=== PATIENT | female | born 1975 | race Caucasian/White ===

== ENCOUNTER 2017-08-15 12:47 | Day surgery (SDC) | payer OTHER ==
[~2017-08-15] VITALS: Ht 160 cm; Wt 108.9 kg
[~2017-08-15 12:47] MED LIST: CIPRO500 MG PO; FLAGYL500MG PO; INTESTINEX1 CA1 PO; SINGULAIR10 MG; SYNTHROID100 MCG
[2017-08-16] MEDS ORDERED: KETO10TA2 PO (18:07)
[2017-08-16] MEDS ORDERED: NEURONTIN300 MG PO (18:08)
[2017-08-16] MEDS ORDERED: RECTICARE30 GM TOP (18:08)
== END 2017-08-16 18:00 | disposition home or self-care (01) ==
LOC: ER 12:47 → SURH 18:08 → CIR.AMB 20:00 → EDSTATUS 08-16 12:15 → CIR.AMB 08-16 18:00 → SURH 08-16 18:29
DX: K61.2 Anorectal abscess (principal); K62.89 Other specified diseases of anus and rectum

== ENCOUNTER 2017-10-11 06:44 | Day surgery (SDC) | payer OTHER ==
[~2017-10-11 06:44] MED LIST changes: +KETO10TA2 PO; +NEURONTIN300 MG PO; +PROAIR HFA8.5 GM IH; +PROVENTIL HFA6.7 GM IH; +RECTICARE30 GM TOP; +SYNTHROID100 MCG PO; +[UNRECOGNIZED DRUG - OTHER]; +[UNRECOGNIZED DRUG - OTHER]
[2017-10-11] MEDS ORDERED: AMOX1TAB5 PO (11:48)
[2017-10-11] MEDS ORDERED: RECTICARE30 GM TOP (11:48)
[2017-10-11] MEDS ORDERED: PERCOCET 5-3251 EACH PO (11:48)
== END 2017-10-11 13:50 | disposition home or self-care (01) ==
LOC: CIR.AMB 06:44
DX: K60.5 Anorectal fistula (principal)

== ENCOUNTER 2018-02-07 05:40 | Day surgery (SDC) | payer OTHER ==
[~2018-02-07 05:40] MED LIST changes: +AMOX1TAB5 PO; +PERCOCET 5-3251 EACH PO; +VENTOLIN HFA18 GM
[2018-02-07] MEDS ORDERED: PERCOCET 5-3251 EACH PO (08:34)
[2018-02-07] MEDS ORDERED: RECTICARE30 GM TOP (08:34)
== END 2018-02-07 11:25 | disposition home or self-care (01) ==
LOC: CIR.AMB 05:40
DX: K60.3 Anal fistula (principal)

== ENCOUNTER 2021-07-01 08:07 | Outpatient (CLI) | payer OTHER | END 2021-07-01 08:09 | disposition home or self-care (01) | LOC: SONOGRAMA 08:07 | PROVIDERS: ATTEND Pathology Anatomic Pathology & Clinical Pathology | DX: E04.1 Nontoxic single thyroid nodule (principal) ==